=== PATIENT | female | born 1990 | race Caucasian/White ===

== ENCOUNTER 2019-09-20 07:39 | Inpatient (IN) ==
--- OUTSIDE RECORDS SUMMARY | 2019-09-20 07:41 | External Medical Summary | Continuity of Care Document ---
:1990 Author Name Kecia Romeo, Provider Address Unavailable Unavailable , Care Team Providers Name Role Phone Maria G Romeo, Sebas Unavailable [email or web address] Unavailable Unavailable Problems Active medical history not documented Allergies and Adverse Reactions Allergy history not documented Medications Medications not documented Procedures Procedures not documented Immunizations Immunizations not documented Plan of Treatment Planned Observations Planned Goals not documented Results No Known Results Results not documented
[2019-09-20] MEDS ORDERED: OXYTOCIN 30 UNITS/500 ML BAG IV PRN (09:48)
[2019-09-20] MEDS ORDERED: miSOPROStoL 50 MCG TAB PO ONE (09:48)
[2019-09-20 10:12] LABS: Hemoglobin 11.4 g/dL (12.0-16.0); Mean Corpuscular Hemoglobin 28.2 pg (25-34); Mean Corpuscular Volume 84.2 fL (80-100); Mean Platelet Volume 10.1 fL (7.4-10.4); Platelet Count 230 K/uL (130-400); RDW Coefficient of Variation 14.2 % (11.5-14.5); Red Blood Count 4.04 M/uL (4.2-5.4); White Blood Count 12.37 K/uL (4.8-10.8)
[2019-09-20 10:37] LABS: Mean Corpuscular Hgb Conc 33.5 g/dL (32-36)
[2019-09-20] MEDS ORDERED: miSOPROStoL 50 MCG TAB PO SCH (14:45)
[2019-09-20] MEDS ORDERED: DINOPROSTONE 10 MG INSERT PV ONE (19:37)
--- NOTE | 2019-09-20 21:07 | Obstetrical Progress Note ---
Date of Service September 20, 2019 Assessment & Plan Admission and Anticipated Discharge Date Admission Date: September 20, 2019 Subjective Doing well Indcution for pending macrosomia EFW on 09/19/19 Results & Data ([facility]) Vital Signs (Past 12 Hours) Vital Signs Temp Pulse Resp BP 09/20/19 18:32 36.4 C L 86 18 117/63 09/20/19 15:30 18 09/20/19 14:54 36.4 C L 94 H 20 130/70 09/20/19 11:28 36.5 C 87 20 129/83 09/20/19 11:21 89 135/100 09/20/19 10:11 90 141/91 H
--- NOTE | 2019-09-20 21:12 | Obstetrical Progress Note ---
Date of Service September 20, 2019 Assessment & Plan Admission and Anticipated Discharge Date Admission Date: September 20, 2019 Subjective Pt doing well Induction for macrosomia EFW on 09/18/19 was 4200gms - >95 percentile Received 2 doses of Cytotec FHR; CAT1 Ctx; Minimal VE; ft/50/-3 Cervidil placed in vagina Results & Data ([facility]) Vital Signs (Past 12 Hours) Vital Signs Temp Pulse Resp BP 09/20/19 18:32 36.4 C L 86 18 117/63 09/20/19 15:30 18 09/20/19 14:54 36.4 C L 94 H 20 130/70 09/20/19 11:28 36.5 C 87 20 129/83 09/20/19 11:21 89 135/100 09/20/19 10:11 90 141/91 H
[2019-09-21] MEDS ORDERED: OXYTOCIN 30 UNITS/500 ML BAG IV PRN ×2 (09:36→22:00)
--- NOTE | 2019-09-21 09:36 | Obstetrical Progress Note ---
Date of Service September 21, 2019 Assessment & Plan Admission and Anticipated Discharge Date Admission Date: September 20, 2019 Physical Exam Genitourinary: Manual OB Exam: + cervical dilation 2 cm and 3 cm, + cervical effacement 50% and + station -2 OB Exam Monitor Tracing: + external FHT monitor used, + external uterine monitor used, + category I and + normal FHT ruel iability Cervidil removed will start Oxytocin EFW 9-9.5 lbs. Results & Data ([facility]) Vital Signs (Past 12 Hours) Vital Signs Temp Pulse Resp BP 09/21/19 08:12 97 H 123/79 09/21/19 03:24 102 H 111/75 09/21/19 03:22 101 H 163/95 H 09/21/19 03:20 36.7 C 18 09/20/19 23:03 36.5 C 96 H 18 136/80
[2019-09-21] MEDS: LACTATED RINGER'S 1,000 ML IV PRN ×2 (10:16→14:13)
[2019-09-21] MEDS ORDERED: BUPIVACAINE 0.25% 30 ML VIAL ONE (12:15)
[2019-09-21] MEDS ORDERED: fentaNYL citrate 100 MCG/2 ML VIAL ONE (12:15)
[2019-09-21] MEDS ORDERED: ePHEDrine sulfate 50 MG/ML AMP ONE (12:15)
[2019-09-21] MEDS ORDERED: fentaNYL 2MCG/ML ROPIV 1.25MG/ML 100 ML BAG EPI ONE (12:16)
--- NOTE | 2019-09-21 12:39 | Anesthesiology Consultation ---
Date of Service September 21, 2019 Assessment & Plan Chart Review Chart Review: Acceptable Risk for Surgery, Patient NOT seen in Pre Admission Testing and Acceptable Risk for Labor Epidural Consults Requested none ASA ASA3 Proposed Anesthesia Anesthesia Type: General, Labor Epidural and CSE Risk / Benefits Reviewed With: PT / POA / Parent / Guardian, Accepts Plan and Informed Consent Obtained History Height/Weight Height: 5 ft 4 in Weight: 109.316 kg Allergies Allergy/AdvReac Type Severity Reaction Status Date / Time Cephalosporins Allergy Intermediate Hives Verified 09/21/19 09:39 sulfamethoxazole Allergy Intermediate ITCHING Verified 09/21/19 09:39 [From Bactrim] trimethoprim [From Bactrim] Allergy Intermediate ITCHING Verified 09/21/19 09:39 Medications Home Medications Medication Instructions Recorded Confirmed Last Taken vit-iron fum-folic ac 1 tab PO DAILY 09/20/19 09/20/19 09/19/19 08:00 [ Vitamin] Active Medications Generic Name Dose Route Start Last Admin Trade Name Freq PRN Reason Stop Dose Admin Lactated Ringer's 1,000 mls @ 125 mls/hr 09/20/19 09:48 09/21/19 12:09 Lr IV 09/22/19 09:47 999 mls/hr .Q8H PRN Infusion L&D Protocol Protocol Oxytocin 30 units in 500 mls @ 5 mls/hr 09/21/19 09:36 09/21/19 11:19 Pitocin IV 09/23/19 09:35 0.3 units/hr .Q24H PRN 5 mls/hr Labor Induction/Augmentation Titration Protocol 0.3 UNITS/HR Misoprostol 50 mcg 09/20/19 14:45 09/20/19 14:52 Cytotec PO 10/20/19 14:44 50 mcg ONCE ARCHIE Administration NPO Date Last Intake of Fluids: 09/21/19 Time Last Intake of Fluids: 11:30 Date Last Intake of Solids: 09/21/19 Time Last Intake of Solids: 08:00 Past Medical History Medical History Anxiety No meds LGA (large for gestational age) fetus Current ; EFW 95th percentile, 4249g at 39.5 weeks Exercise / Class Metabolic Activity II 4-5 Yardwork/Stairs/Walk up hill Past Surgical History Surgical History Hx of appendectomy Past Anesthesia History No Hx of Anesthesia Complications and No Family Hx of Anesthesia Complications History of PONV No Hx of PONV and No Hx of Motion Sickness Social History Smoking Status: Never smoker Hx Alcohol Use: No Hx Substance Use: No Physical Exam Vital Signs Last Vital Signs Temp 36.7 C 09/21/19 03:20 Pulse 108 H 09/21/19 12:32 Resp 18 09/21/19 03:20 BP 125/79 09/21/19 11:26 Pulse Ox 97 09/21/19 12:32 Constitutional + morbidly obese ENMT Mouth: + small oral opening; no dentition abnormality Thyromental Distance: < 3.5 Finger Breadths Mallampati Class: II Neck normal visual inspection and trachea midline; neck extension not limited Respiratory normal respiratory effort Auscultation: lungs clear to auscultation bilaterally Cardiovascular Rate/Rhythm: regular rate and regular rhythm Heart Sounds: no murmur Vessels: no carotid bruit Musculoskeletal Spine: lumbar spine normal to inspection; normal cervical ROM Neurologic moves all extremities Motor/Sensory: no sensory deficit Psychiatric Orientation: alert and oriented x 3 Testing Laboratory Results 09/20/19 10:00
[2019-09-21] MEDS ORDERED: DiphenhydrAMINE HCL 50 MG/ML VIAL IV PRN (13:04)
[2019-09-21] MEDS ORDERED: PROMETHAZINE HCL 25 MG in SODIUM CHLORIDE 0.9% 50 ML IV PRN (13:04)
[2019-09-21] MEDS ORDERED: ePHEDrine sulfate 50 MG/ML AMP IV PRN (13:04)
[2019-09-21] MEDS ORDERED: fentaNYL 2MCG/ML ROPIV 1.25MG/ML 100 ML BAG EPI PRN (13:04)
[2019-09-21] MEDS ORDERED: NALOXONE HCL 1 MG in SODIUM CHLORIDE 0.9% 1000ML 1,000 ML IV PRN (13:04)
[2019-09-21] MEDS ORDERED: NALOXONE HCL 0.4 MG/1 ML VIAL/CARP IV PRN (13:04)
[2019-09-21] MEDS ORDERED: ONDANSETRON INJ 2 MG/ML 2 ML VIAL IV PRN (13:04)
[2019-09-21] MEDS ORDERED: NALBUPHINE HCL INJ 10 MG/ML AMP IV PRN (13:04)
--- NOTE | 2019-09-21 14:10 | Obstetrical Progress Note ---
Date of Service September 21, 2019 Assessment & Plan Admission and Anticipated Discharge Date Admission Date: September 20, 2019 Physical Exam Genitourinary: OB Exam Abdomen: + vertex Manual OB Exam: + cervical dilation 3 cm, + cervical effacement 50%, + station -2 and + amniotic fluid clear OB Exam Monitor Tracing: + external FHT monitor used, + external uterine monitor used, + category I and + normal FHT variability AROM with Amni-hook with clear fluid Results & Data ([facility]) Vital Signs (Past 12 Hours) Vital Signs Temp Pulse Resp BP Pulse Ox 09/21/19 14:04 36.6 C 18 09/21/19 14:03 102 H 115/63 09/21/19 14:02 93 H 97 09/21/19 13:57 97 H 97 09/21/19 13:52 95 H 97 09/21/19 13:48 83 113/59 L 09/21/19 13:47 75 96 09/21/19 13:44 80 111/60 09/21/19 13:42 76 96 09/21/19 13:38 75 113/57 L 09/21/19 13:37 76 96 09/21/19 13:33 88 112/61 09/21/19 13:32 80 97 09/21/19 13:28 85 114/64 09/21/19 13:27 88 95 09/21/19 13:23 94 H 110/66 09/21/19 13:22 100 H 96 09/21/19 13:18 86 115/66 09/21/19 13:17 96 H 97 09/21/19 13:12 102 H 96 09/21/19 13:11 96 H 116/64 09/21/19 13:09 101 H 115/59 L 09/21/19 13:07 107 H 116/60 96 09/21/19 13:05 106 H 115/56 L 09/21/19 13:03 96 H 118/62 09/21/19 13:02 106 H 118/56 L 97 09/21/19 12:59 118 H 139/72 09/21/19 12:57 115 H 96 09/21/19 12:55 98 H 139/78 09/21/19 12:53 109 H 129/79 09/21/19 12:52 98 H 96 09/21/19 12:47 115 H 96 09/21/19 12:42 115 H 96 09/21/19 12:37 109 H 97 09/21/19 12:32 108 H 97 09/21/19 12:27 104 H 96 09/21/19 12:22 97 H 96 09/21/19 12:17 104 H 97 09/21/19 12:12 99 H 97 09/21/19 11:26 95 H 125/79 09/21/19 10:18 114 H 131/82 09/21/19 08:12 97 H 123/79 09/21/19 03:24 102 H 111/75 09/21/19 03:22 101 H 163/95 H 09/21/19 03:20 36.7 C 18
--- NOTE | 2019-09-21 17:11 | Obstetrical Progress Note ---
Date of Service September 21, 2019 Assessment & Plan Admission and Anticipated Discharge Date Admission Date: September 20, 2019 Physical Exam Genitourinary: Manual OB Exam: + cervical dilation 6 cm, + cervical effacement 80%, + station -1 and + amniotic fluid clear OB Exam Monitor Tracing: + external FHT monitor used, + external uterine monitor used, + category I and + normal FHT variability Results & Data ([facility]) Vital Signs (Past 12 Hours) Vital Signs Temp Pulse Resp BP Pulse Ox 09/21/19 17:07 104 H 97 09/21/19 17:02 86 97 09/21/19 17:00 20 09/21/19 16:57 92 H 98 09/21/19 16:53 80 122/78 09/21/19 16:52 85 97 09/21/19 16:47 96 H 97 09/21/19 16:42 100 H 97 09/21/19 16:37 82 97 09/21/19 16:32 110 H 97 09/21/19 16:27 75 96 09/21/19 16:23 78 124/64 09/21/19 16:22 84 96 09/21/19 16:17 76 95 09/21/19 16:12 75 96 09/21/19 16:07 74 97 09/21/19 16:02 84 97 09/21/19 16:00 18 09/21/19 15:57 94 H 97 09/21/19 15:52 87 119/72 97 09/21/19 15:47 85 97 09/21/19 15:42 87 97 09/21/19 15:37 82 96 09/21/19 15:32 88 97 09/21/19 15:27 76 96 09/21/19 15:24 86 126/82 09/21/19 15:22 81 97 09/21/19 15:17 87 97 09/21/19 15:14 36.7 C 101 H 18 113/78 09/21/19 15:13 74 92 09/21/19 15:12 75 95 09/21/19 15:07 71 97 09/21/19 15:02 75 116/67 96 09/21/19 14:57 75 96 09/21/19 14:52 81 116/68 96 09/21/19 14:47 73 96 09/21/19 14:42 88 117/69 96 09/21/19 14:37 76 97 09/21/19 14:33 78 119/71 09/21/19 14:32 77 97 09/21/19 14:27 88 97 09/21/19 14:23 83 129/62 09/21/19 14:22 90 97 09/21/19 14:17 94 H 97 09/21/19 14:12 87 122/70 97 09/21/19 14:07 89 96 09/21/19 14:04 36.6 C 18 09/21/19 14:03 102 H 115/63 09/21/19 14:02 93 H 97 09/21/19 13:57 97 H 97 09/21/19 13:52 95 H 97 09/21/19 13:48 83 113/59 L 09/21/19 13:47 75 96 09/21/19 13:44 80 111/60 09/21/19 13:42 76 96 09/21/19 13:38 75 113/57 L 09/21/19 13:37 76 96 09/21/19 13:33 88 112/61 09/21/19 13:32 80 97 09/21/19 13:28 85 114/64 09/21/19 13:27 88 95 09/21/19 13:23 94 H 110/66 09/21/19 13:22 100 H 96 09/21/19 13:18 86 115/66 09/21/19 13:17 96 H 97 09/21/19 13:12 102 H 96 09/21/19 13:11 96 H 116/64 09/21/19 13:09 101 H 115/59 L 09/21/19 13:07 107 H 116/60 96 09/21/19 13:05 106 H 115/56 L 09/21/19 13:03 96 H 118/62 09/21/19 13:02 106 H 118/56 L 97 09/21/19 12:59 118 H 139/72 09/21/19 12:57 115 H 96 09/21/19 12:55 98 H 139/78 09/21/19 12:53 109 H 129/79 09/21/19 12:52 98 H 96 09/21/19 12:47 115 H 96 09/21/19 12:42 115 H 96 09/21/19 12:37 109 H 97 09/21/19 12:32 108 H 97 09/21/19 12:27 104 H 96 09/21/19 12:22 97 H 96 09/21/19 12:17 104 H 97 09/21/19 12:12 99 H 97 09/21/19 11:26 95 H 125/79 09/21/19 10:18 114 H 131/82 09/21/19 08:12 97 H 123/79
[2019-09-21] MEDS ORDERED: CALCIUM CARBONATE 500 MG CHEWABLE TAB ONE (17:49)
[2019-09-21] MEDS ORDERED: CALCIUM CARBONATE 500 MG CHEWABLE TAB PO PRN (18:00)
--- NOTE | 2019-09-21 20:58 | Delivery Summary ---
Vaginal Delivery Summary Date of Service September 21, 2019 Vaginal Delivery Summary Delivery Note live male MAHNAZ over intact perineum with delayed cord clamping Apgars 8/10 weight pending. Cord blood obtained followed by delivery of intact placenta. No tears. Final sponge and instrument count are correct. EBL 100 ml. Mom and baby stable.
--- NOTE | 2019-09-21 21:11 | Anesthesia Procedure Note ---
Date of Service September 21, 2019 Anesthesia Post Epidural Note Vital Signs Vital Signs: Temp Pulse Resp BP Pulse Ox 36.8 C 103 H 20 105/57 L 96 09/21/19 19:17 09/21/19 21:08 09/21/19 19:17 09/21/19 21:08 09/21/19 21:07 Pain Intensity Lower Abdomen: Pain Intensity: 0 Notes Mental Status: alert / awake / arousable and participated in evaluation Patient Amnestic to Procedure: No Nausea / Vomiting: adequately controlled Pain: adequately controlled Airway Patency, RR, SpO2: stable & adequate BP & HR: stable & adequate Hydration State: stable & adequate Neuraxial Anesthesia: was administered and sensory block is resolving Anesthetic Complications: no major complications apparent and Pt Satisfied with anesthetic care Epidural: Removed without complications and With tip intact
[2019-09-21] MEDS ORDERED: SUPERCREAM 0.870% 15 GM JAR EXT PRN (22:00)
[2019-09-21] MEDS ORDERED: DIPHTHERIA/TETANUS/PERTUSSIS 0.5 ML SYR/VIAL IM ONE (22:00)
[2019-09-21] MEDS ORDERED: HYDROCORTISONE ACETATE 25 MG SUPP PR PRN (22:00)
[2019-09-21] MEDS ORDERED: BENZOCAINE 20% AER SPR 82.5 GM CAN EXT PRN (22:00)
[2019-09-21] MEDS ORDERED: bisacodyL 10 MG SUPP PR PRN (22:00)
[2019-09-21] MEDS ORDERED: ACETAMINOPHEN 325 MG TAB PO PRN (22:00)
[2019-09-21] MEDS: IBUPROFEN 600 MG TAB PO PRN (23:00)
[2019-09-22] MEDS: IBUPROFEN 600 MG TAB PO PRN ×4 (02:58→20:42)
[2019-09-22 06:50] LABS: Hematocrit (blood only) 32.5 % (37-47); Hemoglobin 10.8 g/dL (12.0-16.0); Mean Corpuscular Hemoglobin 28.1 pg (25-34); Mean Corpuscular Hgb Conc 33.2 g/dL (32-36); Mean Corpuscular Volume 84.6 fL (80-100); Mean Platelet Volume 10.6 fL (7.4-10.4); Platelet Count 199 K/uL (130-400); RDW Coefficient of Variation 14.4 % (11.5-14.5); RDW Standard Deviation 44.6 fL (36.4-46.3); Red Blood Count 3.84 M/uL (4.2-5.4); White Blood Count 15.82 K/uL (4.8-10.8)
[2019-09-22] MEDS: DOCUSATE SODIUM 100 MG CAP PO SCH ×2 (08:50→20:40)
[2019-09-22] MEDS: FERROUS SULFATE 325 MG TAB PO SCH (08:50)
[2019-09-22] MEDS: PRENATAL VITAMIN 1 TAB PO SCH (08:51)
[2019-09-22] MEDS ORDERED: NON-FORMULARY MEDICATION (Prenatal Vit-Iron Fum-Folic Ac [Prenatal Vitamin] 1 TAB) PO SCH (09:00)
--- NOTE | 2019-09-22 13:55 | Obstetrical Progress Note ---
Date of Service September 22, 2019 Assessment & Plan Admission and Anticipated Discharge Date Admission Date: September 20, 2019 Subjective Patient is seen and examined. She feels well, no complaints. Likes to be discharged today. Up and walking in her room Voiding without difficulty Tolerating regular diet with out N&V Bleeding is minimal No fever/ chills/ CP/ SOB/dizziness/ N&V/ Leg pain Bottle feeding without problems Vital Signs Temp Pulse Resp BP 09/22/19 09:00 36.3 C L 96 H 20 128/85 09/22/19 04:10 36.4 C L 78 18 129/84 Lab Results 09/20/19 09/22/19 Range/Units 10:00 06:19 WBC 12.37 H 15.82 H (4.8-10.8) K/uL RBC 4.04 L 3.84 L (4.2-5.4) M/uL Hgb 11.4 L 10.8 L (12.0-16.0) g/dL Hct 34.0 L 32.5 L (37-47) % MCV 84.2 84.6 (80-100) fL MCH 28.2 28.1 (25-34) pg MCHC 33.5 33.2 (32-36) g/dL RDW Std Deviation 44.0 44.6 (36.4-46.3) fL RDW Coeff of Arya 14.2 14.4 (11.5-14.5) % Plt Count 230 199 (130-400) K/uL MPV 10.1 10.6 H (7.4-10.4) fL PE: General: Alert, orientedx3, NAD Abd: soft, NT, fundus firm, below Umbilicus Perineum intact, Lochia rubra minimal Ext; NT, 1+/1+ edema, Homans sign negative Bilaterally AP: 29 yo s/p , ppd# 1 VSS Afebrile doing well Continue routine care Desires D/C tonight Discussed when to call All questions were answered D/C home , f/u in office Results & Data ([facility]) Vital Signs (Past 12 Hours) Vital Signs Temp Pulse Resp BP 09/22/19 09:00 36.3 C L 96 H 20 128/85 09/22/19 04:10 36.4 C L 78 18 129/84
[2019-09-22] MEDS ORDERED: bisacodyL 5 MG TABEC PO SCH (20:00)
[2019-09-23 06:03] LABS: Hematocrit (blood only) 33.4 % (37-47)
[2019-09-23] MEDS: IBUPROFEN 600 MG TAB PO PRN (06:38)
[2019-09-23] MEDS: PRENATAL VITAMIN 1 TAB PO SCH (08:38)
[2019-09-23] MEDS: FERROUS SULFATE 325 MG TAB PO SCH (08:38)
[2019-09-23] MEDS: DOCUSATE SODIUM 100 MG CAP PO SCH (08:38)
--- NOTE | 2019-09-23 10:59 | Obstetrical Progress Note ---
Date of Service September 23, 2019 Assessment & Plan Admission and Anticipated Discharge Date Admission Date: September 20, 2019 Subjective Patient is seen and examined. She feels well, no complaints. Stayed due to baby's bilirubin levels. Ambulating without dizziness Voiding without difficulty Tolerating regular diet with out N&V Bleeding is minimal No fever/ chills/ CP/ SOB/ N&V/ Leg pain Bottle feeding without problems Vital Signs Temp Pulse Resp BP Pulse Ox 09/23/19 10:51 36.6 C 99 H 18 116/88 97 09/23/19 07:50 36.6 C 99 H 18 116/88 09/22/19 23:30 36.4 C L 81 16 125/86 Lab Results 09/20/19 09/22/19 09/23/19 Range/Units 10:00 06:19 05:43 WBC 12.37 H 15.82 H (4.8-10.8) K/uL RBC 4.04 L 3.84 L (4.2-5.4) M/uL Hgb 11.4 L 10.8 L 11.0 L (12.0-16.0) g/dL Hct 34.0 L 32.5 L 33.4 L (37-47) % MCV 84.2 84.6 (80-100) fL MCH 28.2 28.1 (25-34) pg MCHC 33.5 33.2 (32-36) g/dL RDW Std Deviation 44.0 44.6 (36.4-46.3) fL RDW Coeff of Arya 14.2 14.4 (11.5-14.5) % Plt Count 230 199 (130-400) K/uL MPV 10.1 10.6 H (7.4-10.4) fL PE: General: Alert, orientedx3, NAD Abd: soft, NT, fundus firm, below Umbilicus Perineum intact, Lochia rubra minimal Ext; NT, trace edema, Homans neg/ neg AP: 29 yo s/p , ppd# 2 VSS Afebrile doing well Continue routine care All questions were answered Discussed when to call D/C home , f/u in office Results & Data ([facility]) Vital Signs (Past 12 Hours) Vital Signs Temp Pulse Resp BP Pulse Ox 09/23/19 10:51 36.6 C 99 H 18 116/88 97 09/23/19 07:50 36.6 C 99 H 18 116/88 09/22/19 23:30 36.4 C L 81 16 125/86
== END 2019-09-23 12:35 | disposition home or self-care (01) | DRG 807 ==
LOC: 4S1 07:39 → 4S2 09-21 23:40